=== PATIENT | male | born 1985 | race African-American/Black ===

== ENCOUNTER 2020-04-22 10:53 | Emergency (ER) | payer BC, SELFPAY ==
[2020-04-22 10:59] VITALS: BP 157/80; PULSE 78; RESP 16; TEMP 36.8; O2SAT 98; BMI 29.0
--- NOTE | 2020-04-22 11:09 | HMH.EDUTC ---
[facility] Disposition Clinical Impression: Encounter for laboratory testing for COVID-19 virus Sinusitis Qualifiers: Sinusitis location: unspecified location Chronicity: unspecified Qualified Code(s): J32.9 - Chronic sinusitis, unspecified Disposition: Home, Self-Care Condition on Discharge: Good Instructions: Sinusitis, Sinus Headache, Preventing the Spread of Coronavirus Discharge Instructions Additional Instructions: *Monitor Temp, Over the counter Motrin or Tylenol as directed/as needed Tylenol every 4 hours and Motrin every 6 hours (as long as your family doctor has told you that you can take it) for fever or pain. and straight to ER if unable to lower temp less than 101.0 after medication given *Warm salt water gargles may help to soothe the throat *Throat Lozenges *Warm fluids like tea with honey may help to soothe the throat *Sleep elevated *Humidifier/Vaporizer *Flonase 2 sprays in each nostril daily but be aware that it may take 2-3 days before you notice improvement Follow up IMMEDIATELY for new or worsening symptoms or no Noticeable improvement over the next 48-72 hours. 911 for difficulty breathing or swallowing You were tested for today for COVID19 your test result should be back in the next 24-48 hours, you may call to the [facility] to see if your test results are back in the next 48 hours [phone] [facility] hours are 9am-9pm You was given a handout with instructions for Self Quarantine and Self isolation for while you wait on test results and what to do if they are positive If you are positive the Health Dept will be contacting you also Prescriptions: Amoxicillin/Potassium Clav [Augmentin 875-125 Tablet] 1 tab PO Q12H 7 Days #14 tab Prescription Printed Fluticasone Propionate [Flonase 50mcg nasal spray 16gm] 1 spr NS DAILY #1 bottle Prescription Printed Referrals: Sadie Garcia PA [Primary Care Provider] - As needed Forms: Work/School Release Time of Disposition: 11:20 Medical Decision Making - Aguilar Inquiry Pt receiving controlled substance: No Aguilar was queried for this patient: No Vital Signs: 04/22/20 10:59 Temperature 98.2 F Temperature Source Oral Pulse Rate [Right] 78 Respiratory Rate 16 Blood Pressure [Right Arm] 157/80 H Blood Pressure Mean [Right Arm] 105 Blood Pressure Source [Right Arm] Automatic Cuff Blood Pressure Position [Right Arm] Sitting 02 Sat by Pulse Oximetry 98 Oxygen Delivery Method Room Air Orders (Tests/Meds): ORDERS Category Date Time Status Covid-19 Nasal PCR Sendout [facility] 04/22/20 10:55 Ordered [facility] HPI - General Stated complaint: covid test Time Seen by Provider: 04/22/20 11:09 Mode of Arrival: Ambulatory Source of Information: Patient Limitations: No Limitations Description of Symptoms (Recalled from Triage Doc. by RN): Pt advises he has been coughing, SOA, runny nose for the past couple of days HEENT Symptoms (Recalled from RN notes): Yes (SOA,cough) Resp Symptoms (Recalled from RN notes): No Skin Symptoms (Recalled from RN notes): No MS Symptoms (Recalled from RN notes): No Functional Status (Recalled from RN notes): na - History of Present Illness Provider Complaint: Patient state that he feels like he may have a sinus infection State that he has been having pressure behind his eyes, drainage in the back of his throat, sore throat cough and felt like he was a little short of breath at times State that he has been blowing yellowish green mucous from his nose State that he has had to miss work all week and the wanted him to come in and get tested for COVID - Related Data Previous Rx's Medication Instructions Recorded Amoxicillin/Potassium Clav 1 tab PO Q12H 7 Days #14 tab 04/22/20 [Augmentin 875-125 Tablet] Fluticasone Propionate [Flonase 1 spr NS DAILY #1 bottle 04/22/20 50mcg nasal spray 16gm] - Worker's Comp Is this a Worker's Comp case?: No [facility] History - Hepatitis A Screen Drug use history?: No Hi
[2020-04-22 11:31] VITALS: BP 145/78; PULSE 87; RESP 16; TEMP 36.9; O2SAT 98
[2020-04-23 13:34] LABS: Covid-19 Nasal PCR Sendout Lex NOT DETECTED
== END 2020-04-22 11:32 | disposition home or self-care (01) ==
PROVIDERS: Emergency Provider Nurse Practitioner; PCP Physician Assistant
DX: Z20.828 Contact with and (suspected) exposure to other viral communicable diseases (principal); J32.9 Chronic sinusitis, unspecified
CPT/HCPCS: 99201; U0004